=== PATIENT | female | born 1990 | race Caucasian/White ===

== ENCOUNTER 2017-10-05 17:25 | Emergency (ER) | payer SELFPAY ==
[2017-10-05 17:25] VITALS: BP 133/79; PULSE 111; RESP 18; TEMP 37; O2SAT 98; BMI 23.5
[2017-10-05 17:43] LABS: Mucous, Urine 0 SEEN /hpf (<or=2+)
[2017-10-05 18:02] LABS: Color, Urine Straw (Yellow); Glucose, Dipstick Normal (Normal); Ketone-Dipstick Negative (Negative); Leukocyte Esterase-Dipstick 25 /ul (Negative); Nitrite-Dipstick Positive (Negative); Occult Blood-Urine 10 /ul (Negative); Protein-Dipstick Negative (Negative); Urine Bilirubin Dipstick Negative (Negative); Urine Clarity Cloudy (Clear); Urine Urobilinogen Normal (Normal)
[2017-10-05 18:07] LABS: Internal QC Validated? YES +Cl - CLEAR BKGD; Pregnancy, Urine Negative Negative
[2017-10-05 18:10] LABS: White Blood Cells 0-5 SEEN /hpf (0-5)
[2017-10-05 18:11] LABS: Bacteria 4+ /hpf (None Seen); Red Blood Cells-Urine 0-5 SEEN /hpf (0-5); Squamous Epithelial Cells - UA 0-5 SEEN /hpf (5-10)
[2017-10-05] MEDS: Ibuprofen 600 MG Tablet PO (18:19)
--- NOTE | 2017-10-05 18:21 | ED.VISSUMM ---
- ER Visit Summary Date of Service: 10/05/17 Chief Complaint: Possible UTI History of Present Illness: The patient is a 27 F who reports dysuria and frequency that started yesterday. She does state her urine is cloudy and has a strong odor. She complains of some mild low back pain. She states her last menstrual cycle was in May. She has not taken a test because she has not had any other symptoms of . She has been 4 times previously. Physical Examination: Vital signs significant only for heart rate of 111. She is afebrile. Patient sitting upright in bed no acute distress. She is nontoxic appearing. Heart is regular rate and rhythm. Lung sounds are clear. Abdomen is soft with mild superpubic tenderness. No guarding or rebound. Back examination reveals no true CVA tenderness. Test Results: Urinalysis is positive for nitrites with 4+ bacteria. Urine test is negative. Emergency Department Course and Treatment: Patient is given ibuprofen and Bactrim here. Should be treated with a 3 day course of antibiotics. She is to follow-up with her [facility] in [place]. Treatment Plan: [] Disposition: Discharge Impression: 1. Cystitis 2. Amenorrhea This note was generated with [employer] dictation software. It may contain incorrect words, spelling, and punctuation that were not noted in review of the chart prior to signing ED Disposition - Plan for ED Patient: Chief Complaint: Complaint Referrals: Surya Bello DO [Primary Care Provider] -
--- NOTE | 2017-10-05 18:22 | ED.DEP ---
ED Disposition - Plan for ED Patient: Disposition: Home or Assisted Living Chief Complaint: Complaint Instructions: ED UTI Cystitis Female, ED Amenorrhea Prescriptions: Smz/Tmp Ds [Bactrim Ds] 1 tablet PO BID #6 tablet Referrals: Surya Bello DO [Primary Care Provider] - Mac Jolley DO [STAFF PHYSICIAN] -
[2017-10-05] MEDS: Smz/Tmp Ds Tablet 1 TABLET PO (18:34)
== END 2017-10-05 18:46 | disposition home or self-care (01) ==
PROVIDERS: Emergency Provider Emergency Medicine; Family Provider Student in an Organized Health Care Education/Training Program; PCP Student in an Organized Health Care Education/Training Program
DX: N30.90 Cystitis, unspecified without hematuria (principal); N91.2 Amenorrhea, unspecified; Z72.0 Tobacco use
CPT/HCPCS: 81001; 81025; 99283

== ENCOUNTER 2018-06-30 21:32 | Emergency (ER) | payer MEDICAID, SELFPAY ==
[2018-06-30 21:33] VITALS: BP 122/69; PULSE 122; RESP 17; TEMP 36.7; O2SAT 99; BMI 23.5
[2018-06-30 22:24] VITALS: BP 117/75; PULSE 113; RESP 18; O2SAT 99
--- NOTE | 2018-06-30 22:29 | US_ITS ---
STUDY: FIRST TRIMESTER OBSTETRICAL ULTRASOUND REASON FOR EXAM: Female, 27 years old. Cramping, bleeding, LMP: 04/16/2018 TECHNIQUE: Transvaginal TECHNICAL QUALITY: Adequate. PRIOR ULTRASOUND: None. FINDINGS: There is visualization of a single gestational sac in a normal intrauterine position. The mean sac diameter (MSD) measures 1.55 cm, indicating an estimated gestational age (EGA) of 6 weeks, 3 days. The gestational sac shape is within normal limits. There is a visualized yolk sac. The yolk sac measures 0.33 cm. The placenta is non-visualized. There is visualization of a live embryo. The crown-rump length (CRL) measures 0.63 cm, indicating an estimated gestational age (EGA) of 6 weeks, 4 days. There is demonstrated cardiac activity with a heart rate of 119 bpm. The estimated gestation age (EGA) by LMP is 10 weeks, 5 days. The estimated date of delivery (GRACY) by LMP is 01/21/2019. The estimated gestation age (EGA) by US is 6 weeks, 4 days. The estimated date of delivery (GRACY) by US is 02/19/2019. The uterus measures 9 x 7 x 5 cm. There is no demonstrated uterine fibroid. The cervix is closed. The right ovary measures 3 x 2.5 x 1.5 cm. There is no right ovarian cyst. There is no visualized right adnexal mass or complex lesion. The left ovary measures 3 x 3 x 2.5 cm. There is no left ovarian cyst. There is no visualized left adnexal mass or complex lesion. There is minimal fluid in the cul de sac. Prominent bilateral pelvic vessels. US/Transvaginal w/Preg US IMPRESSION: Single live intrauterine 6 weeks 4 days gestation with an GRACY of 02/19/2019 and heart rate of 119. There is no subchorionic hemorrhage. Closed internal cervical os. No adnexal masses, large pelvic fluid or ovarian torsion. Bilateral tortuous pelvic vessels possible varices. Electronically Signed: Eleni Rosa, MD at 23:31 EDT , Service support ,
[2018-06-30 22:44] LABS: Absolute Lymphocyte Count 1.88 X10^3/ul (0.83-4.51); Absolute Neutrophil Count 3.7 X10^3/uL (2.0-7.7); Basophil# 0.03 X10^3/uL; Basophil% 0.5 % (0-1); Eosinophil# 0.15 X10^3/uL; Eosinophils% 2.4 % (0-5); Lymphocyte # 1.88 X10^3/ul (4.0); Lymphocyte % 30.4 % (19-41); Mean Corp Hgb Conc 33.3 g/gl (32-36); Mean Corpuscular Volume 84.1 fL (81-99); Mean Platelet Vol. 7.9 fl (6.2-12.0); Monocyte# 0.44 X10^3/uL; Monocyte% 7.1 % (0-10); Neutrophil # 3.65 X10^3/uL (2.7-7.7); Neutrophil % 59.1 % (47-70); Platelet Count 184 K/mm3 (150-450); RBC Distribution Width CV 13.3 % (11.6-14.6); RBC Distribution Width SD 40.2 fl (35.1-43.9); Red Blood Count 4.28 M/mm3 (4.2-5.4); White Blood Count 6.2 K/mm3 (4.4-11.0)
[2018-06-30 22:45] LABS: POSITIVE COUNT NO; POSITIVE DIFFERENTIAL NO; POSITIVE MORPHOLOGY NO
[2018-06-30 23:11] LABS: hCG Titer Quant., Serum 13917 mIU/mL (1-3)
--- NOTE | 2018-06-30 23:50 | ED.DCSUM_ITS ---
- ER Visit Summary Date of Service: 06/30/18 Chief Complaint: and vaginal bleeding History of Present Illness: The patient is a 27 F whose last menstrual cycle was in April. Patient states she had lower pelvic cramping for the past couple of days. She had some vaginal bleeding earlier today that is now completely resolved. She is G5, P3 Ab1. Blood type is reviewed and is O positive. Patient plans to see Dr. Conley but has not yet been seen for this . Physical Examination: Vital signs grossly unremarkable. Patient sitting upright in bed no acute distress. She is somewhat anxious. Heart is regular rate and rhythm. Lung sounds are clear. Abdomen is soft with no tenderness on exam. Active bowel sounds are noted throughout. Test Results: CBC is unremarkable. Quant is 13,917. Transvaginal ultrasound is obtained that reveals a single live intrauterine at 6 weeks and 4 days. Heart rate is 119. No gross abnormalities noted. Emergency Department Course and Treatment: Test results discussed with the patient. I advised her that anytime she has bleeding during her it is considered a threatened miscarriage. She will follow-up with Dr. Conley. Treatment Plan: [] Disposition: Discharge Impression: Threatened AB This note was generated with [employer] dictation software. It may contain incorrect words, spelling, and punctuation that were not noted in review of the chart prior to signing ED Disposition - Plan for ED Patient: Disposition: Home or Assisted Living Instructions: ED Miscarriage Poss Referrals: Malena Conley MD [STAFF PHYSICIAN] - As soon as possible
[2018-06-30 23:54] VITALS: BP 120/78; PULSE 99; RESP 18; O2SAT 100
== END 2018-06-30 23:55 | disposition home or self-care (01) ==
PROVIDERS: Emergency Provider Emergency Medicine; Family Provider Student in an Organized Health Care Education/Training Program; PCP Student in an Organized Health Care Education/Training Program
DX: O20.0 Threatened abortion (principal); Z3A.01 Less than 8 weeks gestation of pregnancy; Z72.0 Tobacco use
CPT/HCPCS: 76817; 84702; 85025; 99283; A4216

== ENCOUNTER 2018-07-26 19:39 | Emergency (ER) | payer MEDICAID, SELFPAY ==
[2018-07-26 19:40] VITALS: BP 111/65; PULSE 113; RESP 16; TEMP 37.2; O2SAT 97; BMI 25.0
--- NOTE | 2018-07-26 20:01 | ED.DCSUM_ITS ---
- ER Visit Summary Date of Service: 07/26/18 Chief Complaint: Acute seizure History of Present Illness: The patient is a 27 F history of seizure disorder. Currently about 10 weeks. G5, P3 Ab1 with having a miscarriage. Patient's had no care. Did have a pelvic ultrasound on June 30 which showed the to be about 6 weeks and 4 days. She denies any vaginal bleeding or discharge. She had a seizure today while outside. Denies any injuries. She went to make sure that the baby was doing okay. Denies abdominal pain. Physical Examination: Well-appearing young female. Vital signs stable. Afebrile. She is not septic toxic. No acute distress. H EENT exam atraumatic nontender. Pupils round react light. Neck nontender. Lungs clear to auscultation bilaterally. Heart regular rhythm no murmur. Rate about 100. Chest nontender. Abdomen soft. Gravid uterus. Nontender. Normal bowel sounds no peritoneal signs. Patient moving all 4 extremities. Neurovascular intact. She has superficial abrasion of the right lower leg. However has normal dorsi and plantar flexion. Foot is neurovascular intact. No gross bony deformity to the foot or the ankle. Neurologically she is awake and alert with no focal motor deficits. Back exam is nontender. Test Results: heart tones equals 168 per the RN. Emergency Department Course and Treatment: Clinically patient is doing well. She is on Lamictal. She will follow-up with her neurologist. She is single care is intact none as of this time. Treatment Plan: [facility]. Follow-up with her neurologist. Disposition: Discharge Impression: Acute recurrent seizure with history of seizure disorder approximately 10 weeks. This note was generated with [employer] software. It may contain incorrect words, spelling, and punctuation that were not noted in review of the chart prior to signing ED Disposition - Plan for ED Patient: Referrals: Surya Bello DO [Primary Care Provider] -
--- NOTE | 2018-07-26 20:08 | DCINST.ED_ITS ---
ED Disposition - Plan for ED Patient: Disposition: Home or Assisted Living Instructions: ED Seizure Recurrent Referrals: Surya Bello DO [Primary Care Provider] - As Needed Malena Conley MD [STAFF PHYSICIAN] - As soon as possible Additional Instructions: Follow-up with an PAGE [facility]UP SYSTEM OPERATOR as soon as possible.
[2018-07-26 20:14] VITALS: PULSE 109; RESP 16; O2SAT 99
--- NOTE | 2018-07-26 20:15 | ED.RN ---
REVIEWED D/C INSTRUCTIONS, FOLLOW UP CARE, AND S/S THAT WOULD WARRANT A RETURN TO THE ED WITH PT. PT VERBALIZED AN UNDERSTANDING AND DENIES FURTHER QUESTIONS FOR THIS RN. PT SKIN P/W/D, RESP EVEN AND UNLABORED, PT A&O X 3, NO DISTRESS NOTED. PT AMBULATED OUT OF ED, GAIT STEADY.
== END 2018-07-26 20:15 | disposition home or self-care (01) ==
PROVIDERS: Emergency Provider Emergency Medicine; Family Provider Student in an Organized Health Care Education/Training Program; PCP Student in an Organized Health Care Education/Training Program
DX: O99.351 Diseases of the nervous system complicating pregnancy, first trimester (principal); G40.909 Epilepsy, unspecified, not intractable, without status epilepticus; Z3A.10 10 weeks gestation of pregnancy; O99.331 Smoking (tobacco) complicating pregnancy, first trimester
CPT/HCPCS: 99283

== ENCOUNTER 2019-06-10 22:24 | Emergency (ER) | payer MEDICAID, SELFPAY ==
[2019-06-10 22:24] VITALS: BP 125/84; PULSE 125; RESP 16; TEMP 36.9; O2SAT 95
[2019-06-10 22:25] VITALS: BP 125/84; PULSE 125; RESP 16; TEMP 36.9; O2SAT 95; BMI 25.5
--- NOTE | 2019-06-10 22:46 | CT_ITS ---
HISTORY: SEIZURE AND FELL AND HAS INJURY BY RT EYEHX:SEIZURES,ASTHMA,METH ABUSE ADDITIONAL HISTORY: None provided. COMPARISON: 06/22/2015 TECHNIQUE: Axial, coronal and sagittal CT images were obtained of the brain without intravenous contrast. Number of images including paperwork: 244. A radiation dose optimization technique was used for this scan. FINDINGS: BRAIN: No acute hemorrhage or mass. No definite acute infarct; MRI more sensitive. VENTRICULAR SYSTEM: No hydrocephalus. PARANASAL SINUSES AND MASTOIDS: No air-fluid level in the imaged extent. Minimal mucosal thickening. ORBITS: Unremarkable imaged extent. SKELETON AND SOFT TISSUES: Calvarium intact. Right periorbital soft tissue swelling. ASPECTS score: Not applicable. CT/Brain/Head without Contrast IMPRESSION: No acute intracranial abnormality. Individualized dose optimization techniques were used for this CT. at 2356 Reported and signed by: Josy Villalpando MD Electronically Signed: Josy Villalpando MD at 23:56 EDT Tel , Service support ,
[2019-06-10] MEDS: 0.9% Normal Saline 1,000 ML 1000 ML IV (22:58)
[2019-06-10 23:07] LABS: Absolute Lymphocyte Count 1.53 X10^3/uL (0.83-4.51); Absolute Neutrophil Count 2.7 X10^3/uL (2.0-7.7); Basophil# 0.02 X10^3/uL; Basophil% 0.4 % (0-1); Eosinophil# 0.15 X10^3/uL; Hematocrit 40.7 % (37-47); Hemoglobin 12.6 g/dL (12.0-15.0); Lymphocyte # 1.53 X10^3/ul (4.0); Lymphocyte % 30.7 % (19-41); Mean Corpuscular Hgb 25.6 pg (27.0-32.0); Mean Corpuscular Volume 82.6 fL (81-99); Mean Platelet Vol. 7.9 fl (6.2-12.0); Monocyte# 0.53 X10^3/uL; Monocyte% 10.6 % (0-10); NRBC Flagged by Analyzer 0 % (0-5); Neutrophil # 2.74 X10^3/uL (2.7-7.7); Neutrophil % 54.9 % (47-70); Platelet Count 261 K/mm3 (150-450); RBC Distribution Width CV 15.5 % (11.6-14.6); RBC Distribution Width SD 46.4 fl (35.1-43.9); Red Blood Count 4.93 M/mm3 (4.2-5.4)
--- NOTE | 2019-06-10 23:18 | ED.VISSUMM ---
- ER Visit Summary Date of Service: 06/10/19 Chief Complaint: Seizure History of Present Illness: The patient is a 28 F who presents with a seizure that occurred tonight. Patient states she was told lasted approximately 40 seconds. Patient states she was told that it was a generalized tonic-clonic seizure. Patient states she has a history of seizures. Patient states she is on Lamictal for that. Patient states she is currently at a treatment facility for methamphetamine abuse. Patient admits to nausea but denies any vomiting. Patient denies any fevers or chills. Patient states she did bite her lower lip. Patient denies any incontinence of urine or stool. Patient also complains of constipation for the past week. Physical Examination: Vital signs are stable except for tachycardia of 125. Patient is afebrile. Patient is in no acute distress. Oral mucosa is pink and moist. Neck is supple. Trachea is midline. There is no JVD noted. Heart was regular and tachycardic. Lungs are clear and equal bilaterally. Abdomen is soft. Bowel sounds are normal. There is mild suprapubic tenderness. There is no rebound or guarding noted. Skin is warm dry. Cranial nerves II through XII are intact. There are no focal motor or sensory deficits noted. Extremities are intact. There is no calf tenderness or edema. Test Results: CT scan of the brain was obtained. There is no acute intracranial abnormality. Acute abdominal x-rays were obtained. There is no evidence of obstruction. There is a large amount of stool noted throughout the colon. These were interpreted by the radiologist and reviewed by myself. CBC and comprehensive metabolic profile were obtained and were within normal limits. Lamotrigine level was ordered and is a send out. Patient will follow-up with her primary care physician for this result. Emergency Department Course and Treatment: Patient was given IV fluids here. Patient was feeling better on reevaluation. Patient will follow-up with her primary care physician for results of her lamotrigine level and reevaluation. Patient was instructed to continue her medications as previously prescribed. Patient was instructed to return if worse in any way. Patient understood and was agreeable with the plan. All questions were answered. Disposition: Discharge home Impression: 1. Seizure This note was generated with [employer] dictation software. It may contain incorrect words, spelling, and punctuation that were not noted in review of the chart prior to signing ED Disposition - Plan for ED Patient: Disposition: Home or Assisted Living Diagnosis: Seizure Instructions: ED Seizure Recurrent Adult Referrals: Surya Bello DO [Primary Care Provider] - 3-5 Days
[2019-06-10 23:20] LABS: ALB/GLOB Ratio 1.1 RATIO (0.9-2.4); AST(SGOT) 25 U/L (15-37); Alanine Aminotransfer ALT/SGPT 38 U/L (13-56); Albumin, Serum 3.9 g/dL (3.2-5.0); Alkaline Phosphatase 102 U/L (45-117); Anion Gap 5 (5-15); BUN 10 mg/dL (7-18); BUN/Creat Ratio 12.5 RATIO (10-20); Calcium,Total 9.3 mg/dL (8.5-10.1); Chloride 105 mmol/L (98-107); EST Glomerular Filtration Rate 92 mL/min (>60); Est Glom Filt Rate - Afr Amer 111 mL/min (>60); Estimated Creatinine Clearance 103.63 ml/min; Globulin 3.5 g/dL (2.2-4.2); Glucose 98 mg/dL (74-106); Potassium 3.9 mmol/L (3.5-5.1); Protein, Total 7.4 g/dL (6.4-8.2); Sodium Level 139 mmol/L (136-145)
--- NOTE | 2019-06-10 23:50 | RAD_ITS ---
HISTORY: ABDOMINAL PAIN, SEIZURE ADDITIONAL HISTORY: None provided. COMPARISON: None TECHNIQUE: Frontal chest radiograph. Supine and left lateral decubitus abdominal radiographs. Number of images including paperwork: 4 FINDINGS: Chest: LUNGS AND PLEURA: No consolidation or pleural effusion. CARDIOMEDIASTINAL CONTOUR: Unremarkable. Abdomen: FREE AIR: None detected. BOWEL GAS PATTERN: Nonobstructive. Large amount of colonic stool. CALCIFICATIONS: No definite urinary tract calculi. ORGANS: No evidence of organomegaly. SOFT TISSUES: Unremarkable. BONES: No acute skeletal abnormality. DEVICES: None RAD/Acute [employer] Chest (Portable) IMPRESSION: 1. No acute cardiopulmonary abnormality is radiographically apparent. 2. No acute abdominal abnormality is radiographically apparent. Large amount of colonic stool. at 0013 Reported and signed by: Josy Villalpando MD Electronically Signed: Josy Villalpando MD at 0:13 EDT Tel , Service support ,
[2019-06-11 00:41] VITALS: BP 110/73; PULSE 108; RESP 18; O2SAT 99
[2019-06-14 14:28] LABS: Lamotrigine (Lamictal) Level 12.9 ug/mL (2.0-20.0)
== END 2019-06-11 00:42 | disposition home or self-care (01) ==
PROVIDERS: Emergency Provider Emergency Medicine; PCP Student in an Organized Health Care Education/Training Program
DX: G40.909 Epilepsy, unspecified, not intractable, without status epilepticus (principal); F15.10 Other stimulant abuse, uncomplicated; K59.00 Constipation, unspecified; F17.210 Nicotine dependence, cigarettes, uncomplicated; Z86.19 Personal history of other infectious and parasitic diseases
CPT/HCPCS: 70450; 74022; 80053; 82542; 85025; 96360; 99285; J7030; A4216

== ENCOUNTER → 2019-07-13 14:38 | Outpatient (CLI) | payer MEDICAID, SELFPAY ==
[2019-07-13 15:23] LABS: Color, Urine Straw (Yellow); Glucose, Dipstick Normal (Normal); Ketone-Dipstick Negative (Negative); Leukocyte Esterase-Dipstick Negative /ul (Negative); Nitrite-Dipstick Negative (Negative); Occult Blood-Urine Negative /ul (Negative); Protein-Dipstick Negative (Negative); Urine Bilirubin Dipstick Negative (Negative); Urine Clarity Clear (Clear); Urine Urobilinogen Normal (Normal)
[2019-07-14 09:50] LABS: Hepatitis C Antibody REACTIVE (Nonreactive)
[2019-07-15 18:10] LABS: HPV Reflexed? NOT INDICATED
[2019-07-25 14:12] LABS: Comment 3 (.); HCV Quant. RNA PCR 110000 IU/mL (.)
[2019-07-25 23:59] LABS: HCV log 10 5.041 (.)
== END ==
PROVIDERS: PCP Student in an Organized Health Care Education/Training Program; Referring Provider Obstetrics & Gynecology; Visit Provider Obstetrics & Gynecology
DX: B18.2 Chronic viral hepatitis C (principal); N39.0 Urinary tract infection, site not specified
CPT/HCPCS: 81002; 86803; 87086; 87088; 87186; 87491; 87522; 87591; 87902; 88175; G0145

== ENCOUNTER 2019-07-19 21:28 | Emergency (ER) | payer MEDICAID, SELFPAY ==
[2019-07-19 21:31] VITALS: BP 115/81; PULSE 90; RESP 16; TEMP 36.1; O2SAT 100; BMI 28.4
--- NOTE | 2019-07-19 22:03 | EKG12_ITS ---
Test Reason : SOB Blood Pressure : / mmHG Vent. Rate : 076 BPM Atrial Rate : 076 BPM P-R Int : 130 ms QRS Dur : 090 ms QT Int : 388 ms P-R-T Axes : -06 063 027 degrees QTc Int : 436 ms Normal sinus rhythm Normal ECG Confirmed by HAI LANDRY, BORIS ([id number]), editorial writer URIAH CALLAHAN ([id number]) on 07/26/2019 3:30:58 PM Referred By: RAFY Confirmed By:BORIS VALLES MD
[2019-07-19 22:34] VITALS: BP 114/80; PULSE 75; RESP 18; TEMP 36.7; O2SAT 100
[2019-07-19] MEDS: 0.9% Normal Saline 1,000 ML 1000 ML IV (22:36)
--- NOTE | 2019-07-19 22:37 | ED.VISSUMM ---
- ER Visit Summary Date of Service: 07/19/19 Chief Complaint: MRSA in my blood History of Present Illness: The patient is a 28 F who presents because she was contacted that she has MRSA in her blood test. She is reporting shortness of breath, chest pain, rash. She tells me she was recently prescribed Macrobid for a UTI. She also has an IUD in place and is having vaginal bleeding. She was seen at her INTERIOR DESIGN COORDINATOR's office for the UTI and the bleeding. She is now having the chest pain and other symptoms, so this prompted her to come to the ED. Physical Examination: Afebrile and vital signs are unremarkable. Patient is alert and oriented. No acute distress. Heart regular and no respiratory distress. Breathing comfortably. No wheezing. Skin appears unremarkable. Test Results: EKG shows sinus rhythm at a rate of 76. CBC, BMP, troponin pending. Chest x-ray pending. Emergency Department Course and Treatment: I reviewed the patient's records. She had a urine culture that showed MRSA but no positive blood cultures. I contacted her INTERIOR DESIGN COORDINATOR office, Dr. Sheehan said that she had positive MRSA in her urine which was sensitive to many antibiotics. She was treated with Macrobid. There is no positive blood culture. Macrobid is appropriate based on her culture. I did check an EKG, chest x-ray, and labs based on her other symptoms. I have low suspicion for anything abnormal. Pending normal results, she will follow-up with her INTERIOR DESIGN COORDINATOR office. Continue taking her antibiotic as prescribed. Treatment Plan: As above Disposition: Discharge pending normal testing Impression: UTI Atypical chest pain This note was generated with [employer] dictation software. It may contain incorrect words, spelling, and punctuation that were not noted in review of the chart prior to signing ED Disposition - Plan for ED Patient: Referrals: Surya Bello DO [Primary Care Provider] -
--- NOTE | 2019-07-19 22:40 | RAD_ITS ---
STUDY: X-RAY CHEST REASON FOR EXAM: Female, 28 years old. Chest pain with sob TECHNIQUE: Single AP portable view of the chest. COMPARISON: 06/10/2019 FINDINGS: The lungs are clear and expanded. There is no demonstrated pleural abnormality. Normal size heart. Normal mediastinum and buddy. Normal visualized pulmonary arteries. Normal visualized aortic arch and descending thoracic aorta. Normal visualized thoracic spine. Normal visualized ribs, clavicles, and shoulders. There is no demonstrated abnormality of the visualized soft tissue structures of the upper abdomen. RAD/Chest 1 View (Portable) IMPRESSION: Normal x-ray examination of the chest. Electronically Signed: Dwight Sutherland MD at 23:00 EDT , Service support ,
--- NOTE | 2019-07-19 22:40 | ED.DEP ---
ED Disposition - Plan for ED Patient: Instructions: Understanding Urinary Tract Infections (UTIs) Prescriptions: Ondansetron [Zofran Odt] 4 mg PO Q8H PRN PRN #10 tab PRN Reason: Nausea Prescription Printed Referrals: Gavino Sheehan MD [STAFF PHYSICIAN] -
[2019-07-19 22:45] LABS: Absolute Lymphocyte Count 1.92 X10^3/uL (0.83-4.51); Absolute Neutrophil Count 3.5 X10^3/uL (2.0-7.7); Basophil# 0.02 X10^3/uL; Basophil% 0.3 % (0-1); Eosinophil# 0.15 X10^3/uL; Eosinophils% 2.4 % (0-5); Hemoglobin 12.2 g/dL (12.0-15.0); Lymphocyte # 1.92 X10^3/ul (4.0); Lymphocyte % 31.1 % (19-41); Mean Corp Hgb Conc 32.1 g/dL (32-36); Mean Corpuscular Hgb 26.7 pg (27.0-32.0); Mean Corpuscular Volume 83.2 fL (81-99); Mean Platelet Vol. 8.5 fl (6.2-12.0); Monocyte# 0.53 X10^3/uL; Monocyte% 8.6 % (0-10); NRBC Flagged by Analyzer 0 % (0-5); Neutrophil # 3.53 X10^3/uL (2.7-7.7); Neutrophil % 57.3 % (47-70); Platelet Count 268 K/mm3 (150-450); RBC Distribution Width CV 14.2 % (11.6-14.6); RBC Distribution Width SD 42.6 fl (35.1-43.9); Red Blood Count 4.57 M/mm3 (4.2-5.4); White Blood Count 6.2 K/mm3 (4.4-11.0)
[2019-07-19 23:08] LABS: Anion Gap 7 (5-15); BUN 17 mg/dL (7-18); BUN/Creat Ratio 20.4 RATIO (10-20); Calcium,Total 8.8 mg/dL (8.5-10.1); Chloride 105 mmol/L (98-107); Creatinine, Serum 0.83 mg/dL (0.55-1.02); EST Glomerular Filtration Rate 88 mL/min (>60); Est Glom Filt Rate - Afr Amer 106 mL/min (>60); Estimated Creatinine Clearance 92.42 ml/min; Glucose 84 mg/dL (74-106); Potassium 3.5 mmol/L (3.5-5.1); Sodium Level 139 mmol/L (136-145)
[2019-07-19 23:27] VITALS: BP 119/83; PULSE 75; RESP 19; O2SAT 100
== END 2019-07-19 23:28 | disposition home or self-care (01) ==
LOC: ED 22:54
PROVIDERS: Emergency Provider Emergency Medicine; PCP Student in an Organized Health Care Education/Training Program
DX: N39.0 Urinary tract infection, site not specified (principal); R07.89 Other chest pain; A49.02 Methicillin resistant Staphylococcus aureus infection, unspecified site; Z97.5 Presence of (intrauterine) contraceptive device; N93.9 Abnormal uterine and vaginal bleeding, unspecified
CPT/HCPCS: 71045; 80048; 84484; 85025; 93005; 99284; J7030

== ENCOUNTER 2019-09-19 21:26 | Emergency (ER) | payer MEDICAID, SELFPAY ==
[2019-09-19 21:28] VITALS: BP 123/78; PULSE 67; RESP 20; TEMP 36.8; O2SAT 97; BMI 26.4
[2019-09-19] MEDS: Acetaminophen 325 MG Tablet 650 MG PO (22:30)
[2019-09-19] MEDS: Ibuprofen 600 MG Tablet PO (22:30)
--- NOTE | 2019-09-19 22:54 | ED.DCSUM_ITS ---
History of Present Illness Chief Complaint: Seizure Informant: Patient, Significant Other Onset: Today Narrative: Patient is a 29-year-old female with history of epilepsy presenting with a breakthrough seizure. Patient is on Lamictal but missed 2 doses earlier this week. She has been on it since. She was left alone by her significant other for about an hour when he came back she was on the ground and items restrained about the kitchen. Patient was minimally responsive and was not making sense when she did speak. Her significant other thought it was taking longer than it should have for her to come back to normal so he called 911. Patient is now back to her baseline. She is complained of a mild headache which is typical after her seizures. She does states she hit her head on the right side but she does not have any wounds to this visualized. Patient states normally she will hit her face and be look like she was punched in the face after seizure. Patient denies any other complaints at this time. Her last menstrual period was 3 weeks ago and she is not concerned for . Past Medical History - Allergies and Home Meds Allergies/Adverse Reactions: Allergies No Known Allergies Allergy (Verified 09/19/19 21:28) Primary Care Physician: Surya Bello DO [Primary Care Provider] - Past Medical History: - - Generalized tonic-clonic seizures, resting tremor Lives: Spouse/ Significant Other Smoking Status: Current every day smoker Review of Systems General: Denies: Chills, Fever, Sweats Eyes: Denies: Visual changes - bilaterally, Diplopia ENT: Denies: Rhinorrhea, Sore throat Cardiovascular: Denies: Chest pain, Palpitations Respiratory: Denies: Dyspnea, Cough, Dyspnea on exertion Gastrointestinal: Denies: Abdominal pain, Nausea, Vomiting, Diarrhea, Melena, Hematochezia Genitourinary: Denies: Dysuria, Hematuria, Frequency Musculoskeletal: Denies: Back pain, Extremity Pain Skin: Denies: Rash, Wounds Neurological: Reports: Headache, - - Seizure-like activity. Denies: Weakness, N umbness Physical Exam Vital Signs/Narrative: Vital Signs Temp Pulse Resp BP Pulse Ox 09/19/19 21:28 98.3 F 67 20 H 123/78 H 97 Inital Vital Signs reviewed: Yes General: Well nourished, Well developed, No Acute Distress Head: Normocephalic, Atraumatic, Tenderness - Right parietal area, no associated hematoma, abrasion or laceration Eyes: Perrl, EOMI, - - No nystagmus ENT: Moist mucous membranes, No rhinorrhea Neck: Supple, Nontender, - - Normal range of motion Cardiovascular: Regular rate, Regular rhythm, No murmurs Respiratory: No distress, CTA bilaterally, Chest nontender Abdomen: Soft, Nontender, Nondistended, Normal bowel sounds Back: Nontender, Normal Inspection Extremities: Nontender, No edema. Negative for: Tenderness, Edema Skin: Normal color, No rash Neurological: Alert, Oriented x3, Cranial nerves II-XII grossly intact, Normal Strength, Normal Sensation, Normal Gait. Negative for: Weakness Psychological: Normal affect, Normal Mood Diagnostic/Tx/Re-eval - Medical Decision Making Patient evaluated for seizure-like activity. It was unwitnessed but significant other found her postictal and house had items strewn about as if she had a seizure while staying at the dining room table. Patient is now back to her neurologic baseline. She is on any obvious signs of head trauma. Patient does have some mild tenderness of her right parietal area with no associated hematoma. Patient states she thinks she might of hit her head during the seizure. She is offered a head CT but declines. Patient not have any neck t enderness. She recently missed a couple doses of her Lamictal which is likely why she had a breakthrough seizure. She states is typical if she does miss doses. Patient and significant other are counseled on return precautions including multiple episodes of vomiting, altered mental status or new neurologic symptoms. They verbalized agreement understand this plan. Patient discharged home in stable condition. ED Disposition - Plan for ED Patient: Disposition: Home or Assisted Living Diagnosis: Breakthrough seizure, Closed head injury Instructions: ED Head Injury Adult, ED Seizure Recurrent Adult Referrals: Surya Bello DO [Primary Care Provider] - Additional Instructions: Take Tylenol and/or ibuprofen as needed for pain. Please follow-up with your neurologist. Please do not drive, take baths or swim until cleared by your neurologist. Continue to take your seizure medication as prescribed.
[2019-09-19 23:02] VITALS: BP 113/73; PULSE 73; RESP 16; O2SAT 98
== END 2019-09-19 23:05 | disposition home or self-care (01) ==
PROVIDERS: Emergency Provider Emergency Medicine; PCP Student in an Organized Health Care Education/Training Program
DX: G40.409 Other generalized epilepsy and epileptic syndromes, not intractable, without status epilepticus (principal); S09.90XA Unspecified injury of head, initial encounter; F17.200 Nicotine dependence, unspecified, uncomplicated; W22.8XXA Striking against or struck by other objects, initial encounter
CPT/HCPCS: 99285

== ENCOUNTER 2019-09-22 22:01 | Emergency (ER) | payer MEDICAID, SELFPAY ==
[2019-09-22 22:02] VITALS: BP 118/71; PULSE 80; RESP 16; TEMP 36.9; O2SAT 98; BMI 27.3
--- NOTE | 2019-09-22 22:36 | ED.VIS.GEN ---
History of Present Illness Chief Complaint: Headache Informant: Patient Narrative: 29-year-old female presents with headache which is been continuous since she had been seen for seizure last week. She states she had a 3-minute seizure witnessed by her boyfriend. She was postictal for a while. They did not do any blood work or imaging when she was in the ER. She states that she has not been able to get rid of her headache. Today she felt a little lightheaded and nauseous. Not fall down. Denies fever or chills. Past Medical History - Allergies and Home Meds Allergies/Adverse Reactions: Allergies No Known Allergies Allergy (Verified 09/22/19 22:04) Primary Care Physician: Surya Bello DO [Primary Care Provider] - Prior records reviewed: Yes Lives: Spouse/ Significant Other Smoking Status: Current every day smoker Alcohol: None Drugs: None Review of Systems General: Denies: Chills, Fever Respiratory: Denies: Dyspnea, Cough, Dyspnea on exertion Gastrointestinal: Denies: Abdominal pain, Nausea, Vomiting, Diarrhea, Melena, Hematochezia Genitourinary: Reports: Frequency. Denies: Dysuria Musculoskeletal: Denies: Myalgias Skin: Denies: Rash Neurological: Reports: Headache. Denies: Weakness, Parasthesia, Numbness Psych: Denies: Depression, Anxiety Allergy: Denies: Uticaria, Swelling of the mouth Physical Exam Vital Signs/Narrative: Vital Signs Temp Pulse Resp BP Pulse Ox 09/22/19 22:02 98.4 F 80 16 118/71 98 Inital Vital Signs reviewed: Yes General: Well nourished, Well developed, No Acute Distress Head: Normocephalic, Atraumatic Eyes: Perrl ENT: Moist mucous membranes Cardiovascular: Regular rate Respiratory: No distress Abdomen: Soft Skin: Normal color Neurological: Alert, Oriented x3, Cranial nerves II-XII grossly intact, Normal Strength, Normal Sensation Psychological: Normal affect Diagnostic/Tx/Re-eval - Medical Decision Making Presents with headache since having seizure on her last visit. Check some basic lab work and this is normal. She does have a UTI it appears. We did discuss whether we should do a CT of the brain but given there is another source for headache she opted to wait. I think this is reasonable. Patient will return if she has any new or worsening symptoms. Impression: 1. Headache 2. UTI ED Disposition - Plan for ED Patient: Disposition: Home or Assisted Living Diagnosis: UTI (urinary tract infection) Instructions: ED Headache Unspecified, ED CYSTITIS Female Adult Referrals: Surya Bello DO [Primary Care Provider] -
[2019-09-22 22:44] LABS: Mucous, Urine 0 SEEN /hpf (<or=2+)
[2019-09-22] MEDS: Metoclopramide 10 MG/2 ML Vial IV (22:46)
[2019-09-22 22:47] LABS: Color, Urine Yellow (Yellow); Glucose, Dipstick Normal (Normal); Ketone-Dipstick Negative (Negative); Leukocyte Esterase-Dipstick 100 /ul (Negative); Nitrite-Dipstick Negative (Negative); Occult Blood-Urine 10 /ul (Negative); Protein-Dipstick Negative (Negative); Urine Bilirubin Dipstick Negative (Negative); Urine Clarity Cloudy (Clear); Urine Urobilinogen 1 mg/dl (Normal)
[2019-09-22 22:47] LABS: Absolute Lymphocyte Count 1.69 X10^3/uL (0.83-4.51); Absolute Neutrophil Count 2.1 X10^3/uL (2.0-7.7); Basophil# 0.01 X10^3/uL; Basophil% 0.2 % (0-1); Eosinophil# 0.19 X10^3/uL; Eosinophils% 4.3 % (0-5); Hematocrit 38.5 % (37-47); Lymphocyte # 1.69 X10^3/ul (4.0); Lymphocyte % 38.4 % (19-41); Mean Corp Hgb Conc 31.2 g/dL (32-36); Mean Corpuscular Hgb 25.5 pg (27.0-32.0); Mean Corpuscular Volume 81.7 fL (81-99); Monocyte# 0.42 X10^3/uL; Monocyte% 9.5 % (0-10); NRBC Flagged by Analyzer 0 % (0-5); Neutrophil # 2.08 X10^3/uL (2.7-7.7); Neutrophil % 47.4 % (47-70); Platelet Count 223 K/mm3 (150-450); RBC Distribution Width CV 13.9 % (11.6-14.6); RBC Distribution Width SD 41.1 fl (35.1-43.9); Red Blood Count 4.71 M/mm3 (4.2-5.4); White Blood Count 4.4 K/mm3 (4.4-11.0)
[2019-09-22] MEDS: DiphenhydrAMINE 50 MG/ML Syringe 25 MG IV (22:49)
[2019-09-22 22:51] LABS: Internal QC Validated? YES +Cl - CLEAR BKGD; Pregnancy, Urine Negative Negative
[2019-09-22 22:54] LABS: Bacteria 3+ /hpf (None Seen); Red Blood Cells-Urine 0-5 SEEN /hpf (0-5); Squamous Epithelial Cells - UA 0-5 SEEN /hpf (5-10); White Blood Cells 5-10 SEEN /hpf (0-5)
[2019-09-22 22:57] LABS: Anion Gap 3 (5-15); BUN 6 mg/dL (7-18); BUN/Creat Ratio 7.2 RATIO (10-20); Calcium,Total 8.9 mg/dL (8.5-10.1); Chloride 111 mmol/L (98-107); Creatinine, Serum 0.83 mg/dL (0.55-1.02); EST Glomerular Filtration Rate 88 mL/min (>60); Est Glom Filt Rate - Afr Amer 106 mL/min (>60); Estimated Creatinine Clearance 99.01 ml/min; Glucose 131 mg/dL (74-106); Potassium 3.6 mmol/L (3.5-5.1); Sodium Level 141 mmol/L (136-145)
[2019-09-22] MEDS: Cephalexin 250 MG Capsule 500 MG PO (23:51)
[2019-09-23 00:03] VITALS: BP 116/70; PULSE 68; RESP 16; O2SAT 99
== END 2019-09-23 00:43 | disposition home or self-care (01) ==
PROVIDERS: Emergency Provider Student in an Organized Health Care Education/Training Program; PCP Student in an Organized Health Care Education/Training Program
DX: N39.0 Urinary tract infection, site not specified (principal); R51 Headache; F17.200 Nicotine dependence, unspecified, uncomplicated; G40.909 Epilepsy, unspecified, not intractable, without status epilepticus
CPT/HCPCS: 80048; 81001; 81025; 85025; 96374; 96375; 99282; A4216

== ENCOUNTER 2019-11-25 16:14 | Emergency (ER) | payer MEDICAID, SELFPAY ==
[2019-11-25 16:16] VITALS: BP 141/75; PULSE 103; RESP 17; TEMP 36.3; O2SAT 99; BMI 23.8
--- NOTE | 2019-11-25 16:22 | ED.RN ---
pt informed that there is a wait in ed today. pt reports that she cannot wait, and needs to be seen right away. pt educated on triage process. reports she will go to be seen somewhere else. lwbs at 1622.
== END 2019-11-25 17:16 ==
LOC: ED 16:54
PROVIDERS: Emergency Provider Emergency Medicine; PCP Student in an Organized Health Care Education/Training Program
DX: N93.9 Abnormal uterine and vaginal bleeding, unspecified (principal)
CPT/HCPCS: 99281

== ENCOUNTER 2019-12-08 09:07 | Emergency (ER) | payer MEDICAID, SELFPAY ==
[2019-12-08 09:09] VITALS: BP 125/67; PULSE 89; RESP 16; TEMP 36.3; O2SAT 100; BMI 24.3
--- NOTE | 2019-12-08 09:31 | ED.VIS.GEN ---
History of Present Illness Chief Complaint: Vag Bld, Preg Informant: Patient Narrative: 29-year-old female G6, currently estimated at 10 weeks . She states that she is trying to establish with an LOSS PREVENTION AND SAFETY MANAGER currently and has an appointment for next week. She presents with vaginal spotting started last evening/this morning. She denies any injury. She has not been having sexual intercourse. She states she has some associated cramping. She is concerned that she has miscarrying because her last ended in miscarriage. She knows that she is O+ blood type. She does not require RhoGam. She has not had any fever, chills. She has no nausea or vomiting. She has not had confirmed intrauterine . Past Medical History - Allergies and Home Meds Allergies/Adverse Reactions: Allergies paroxetine [From Paxil] Adverse Reaction (Verified 12/08/19 09:09) Vomiting Primary Care Physician: Surya Bello DO [Primary Care Provider] - Past Medical History: - - Denies significant medical history Lives: Spouse/ Significant Other Smoking Status: Current every day smoker Alcohol: None Drugs: None Review of Systems General: Denies: Chills, Fever, Sweats Eyes: Denies: Visual changes - bilaterally, Diplopia ENT: Denies: Rhinorrhea, Sore throat Cardiovascular: Denies: Chest pain, Palpitations Respiratory: Denies: Dyspnea, Cough, Dyspnea on exertion Gastrointestinal: Reports: - Genitourinary: Reports: - - Pelvic pain and cramping with vaginal spotting Musculoskeletal: Denies: Back pain, Extremity Pain Skin: Denies: Rash, Wounds Neurological: Denies: Headache, Weakness, Numbness Physical Exam Vital Signs/Narrative: Vital Signs Temp Pulse Resp BP Pulse Ox 12/08/19 09:09 97.3 F L 89 16 125/67 H 100 Inital Vital Signs reviewed: Yes General: Well nourished, No Acute Distress Head: Normocephalic, Atraumatic Eyes: Perrl, EOMI. Negative for: Pale conjunctiva ENT: Moist mucous membranes, No rhinorrhea Cardiovascular: Regular rate, Regular rhythm Respiratory: No distress, CTA bilaterally Abdomen: Soft, Nondistended : - - Mild tenderness to palpation in the suprapubic region. Abdomen is nonperitoneal. Rectal osseous closed. No blood in the posterior fornix. No abnormal lesions notified. No adnexal tenderness. Extremities: Nontender, No edema Skin: Normal color, No rash Neurological: Alert, Oriented x3 Psychological: Normal affect, Normal Mood Diagnostic/Tx/Re-eval Clinical Impression(s) from Imaging Studies Obstetrics Ultrasound 12/08/19 09:35 IMPRESSION: There is visualization of a live embryo. The crown-rump length (CRL) measures 6.8 mm, indicating an estimated gestational age (EGA) of 6 weeks, 4 days. There is demonstrated cardiac activity with a heart rate of 125 bpm. Electronically Signed: Zoila Montemayor, at 12:04 EDT Tel , Service support , Laboratory Data 12/08/19 12/08/19 12/08/19 09:47 09:47 09:47 WBC 4.7 RBC 4.48 Hgb 12.1 Hct 37.2 MCV 83.0 MCH 27.0 MCHC 32.5 RDW Std Deviation 43.0 RDW Coeff of Sylvia 14.2 Plt Count 234 MPV 8.3 Immature Gran % (Auto) 0.400 Neut % (Auto) 54.1 Lymph % (Auto) 31.6 [place] % (Auto) 9.1 Eos % (Auto) 4.4 Baso % (Auto) 0.4 Absolute Neuts (auto) 2.6 Absolute Lymphs (auto) 1.50 Nucleated RBC % 0 HCG, Quant 22444 H Urine Color Straw Urine Clarity Clear Urine pH 7.0 Ur Specific [place] 1.010 Urine Protein Negative Urine Glucose (UA) Normal Urine Ketones Negative Urine Occult Blood Negative Urine Nitrite Negative Urine Bilirubin Negative Urine Urobilinogen Normal Ur Leukocyte Esterase 25 H - Medical Decision Making 29-year-old female presenting for concern of vaginal bleeding and . She estimates she is about 10 weeks. She has not had follow-up with OB but she is trying to get established. She is having some pelvic cramping as well. She is only had a small amount of spotting but she is concerned because she miscarried her last . h[place] quant [id number]. Transvaginal ultrasound shows live intrauterine about 6 weeks, 4 days. Needle heart rate heart rate of 125 bpm. On pelvic exam there is no blood in the posterior fornix. The cervical office is closed. There is no discharge. No adnexal tenderness. Given her hCG I feel we can effectively rule out ectopic . Patient is known to be Rh+ and does not require RhoGam. She is going to follow-up with her LOSS PREVENTION AND SAFETY MANAGER for her initial appointment. She is given return precautions. Impression: 1. First trimester 2. Threatened miscarriage ED Disposition - Plan for ED Patient: Disposition: Home or Assisted Living Instructions: ED Possible Miscarriage Threatened Referrals: Surya Bello DO [Primary Care Provider] -
--- NOTE | 2019-12-08 09:35 | US_ITS ---
STUDY: FIRST TRIMESTER OBSTETRICAL ULTRASOUND REASON FOR EXAM: Female, 29 years old BLEEDING CRAMPING W/PREG -- QUANT [id number] -- PT UNSURE OF LMP LMP: TECHNIQUE: Transabdominal and Transvaginal TECHNICAL QUALITY: Adequate. PRIOR ULTRASOUND: None. FINDINGS: There is visualization of a single gestational sac in a normal intrauterine position. The mean sac diameter (MSD) measures 1.78 cm, indicating an estimated gestational age (EGA) of 6 weeks, 5 days. The gestational sac shape is within normal limits. There is a visualized yolk sac. The yolk sac measures 4.7 mm. The placenta is non-visualized. There is visualization of a live embryo. The crown-rump length (CRL) measures 6.8 mm, indicating an estimated gestational age (EGA) of 6 weeks, 4 days. There is demonstrated cardiac activity with a heart rate of 125 bpm. The estimated gestation age (EGA) by LMP is 9 weeks, 5 days. The estimated date of delivery (GRACY) by LMP is 07/07/2020. The estimated gestation age (EGA) by US is 6 weeks, 5 days. The estimated date of delivery (GRACY) by US is 07/28/2020. The uterus measures 11.3 x 6.5 x 6. Centimeter 8. There is no demonstrated uterine fibroid. The cervix is closed. The right ovary measures 3.7 x 2.3 x 2.4 cm. There is no right ovarian cyst. There is no visualized right adnexal mass or complex lesion. The left ovary measures 3.2 x 2.7 x 2.3 cm. There is no left ovarian cyst. There is no visualized left adnexal mass or complex lesion. There is no fluid in the cul de sac. US/Init OB < 14Wks US IMPRESSION: There is visualization of a live embryo. The crown-rump length (CRL) measures 6.8 mm, indicating an estimated gestational age (EGA) of 6 weeks, 4 days. There is demonstrated cardiac activity with a heart rate of 125 bpm. Electronically Signed: Zoila Montemayor, at 12:04 EDT Tel , Service support ,
[2019-12-08 09:56] LABS: Absolute Neutrophil Count 2.6 X10^3/uL (2.0-7.7); Basophil# 0.02 X10^3/uL; Basophil% 0.4 % (0-1); Color, Urine Straw (Yellow); Eosinophil# 0.21 X10^3/uL; Eosinophils% 4.4 % (0-5); Glucose, Dipstick Normal (Normal); Hematocrit 37.2 % (37-47); Hemoglobin 12.1 g/dL (12.0-15.0); Ketone-Dipstick Negative (Negative); Leukocyte Esterase-Dipstick 25 /ul (Negative); Lymphocyte % 31.6 % (19-41); Mean Corp Hgb Conc 32.5 g/dL (32-36); Mean Platelet Vol. 8.3 fl (6.2-12.0); Monocyte# 0.43 X10^3/uL; Monocyte% 9.1 % (0-10); NRBC Flagged by Analyzer 0 % (0-5); Neutrophil # 2.56 X10^3/uL (2.7-7.7); Neutrophil % 54.1 % (47-70); Nitrite-Dipstick Negative (Negative); Occult Blood-Urine Negative /ul (Negative); Platelet Count 234 K/mm3 (150-450); Protein-Dipstick Negative (Negative); RBC Distribution Width CV 14.2 % (11.6-14.6); Red Blood Count 4.48 M/mm3 (4.2-5.4); Urine Bilirubin Dipstick Negative (Negative); Urine Clarity Clear (Clear); Urine Urobilinogen Normal (Normal); White Blood Count 4.7 K/mm3 (4.4-11.0)
[2019-12-08 10:39] LABS: hCG Titer Quant., Serum 23944 mIU/mL (1-3)
== END 2019-12-08 11:38 | disposition home or self-care (01) ==
PROVIDERS: Emergency Provider Student in an Organized Health Care Education/Training Program; PCP Student in an Organized Health Care Education/Training Program
DX: O20.0 Threatened abortion (principal); Z3A.10 10 weeks gestation of pregnancy; O99.331 Smoking (tobacco) complicating pregnancy, first trimester; F17.200 Nicotine dependence, unspecified, uncomplicated
CPT/HCPCS: 76801; 81002; 84702; 85025; 99283; A4216

== ENCOUNTER 2020-05-11 10:30 | Outpatient (CLI) | payer MEDICAID, SELFPAY ==
[2020-05-11 10:50] VITALS: BP 119/70; PULSE 107; TEMP 37.2; O2SAT 98
[2020-05-11 10:51] VITALS: TEMP 37.2
[2020-05-11 10:52] VITALS: PULSE 106; O2SAT 98
[2020-05-11 10:57] VITALS: BMI 27.2
--- NOTE | 2020-05-11 11:58 | US_ITS ---
STUDY: SECOND AND THIRD TRIMESTER OBSTETRICAL ULTRASOUND - LIMITED REASON FOR EXAM: Female, 29 years old right lower quadrant pain, spotting in -- 29 weeks 2 days LMP: 10/19/2019 PRIOR ULTRASOUND: None. TECHNIQUE: Transabdominal TECHNICAL QUALITY: Adequate. FINDINGS: There is a single intrauterine fetus. The fetus is in a cephalic presentation. There is demonstrated cardiac activity with a heart rate of 157 bpm. There is a normal amniotic fluid volume. The largest amniotic fluid pocket measures 6.7 cm. The amniotic fluid index (YVETTE) is 16.9 cm. The placenta is anterior in location and is not low lying. There are Grade 1 placental changes. The cervix measures 4.3 cm in length. Age by LMP: 29 weeks, 2 days. GRACY by LMP: 07/25/2020. age by prior US: 29 weeks, 5 days. GRACY by prior US: 07/28/2020. age by current US: 29 weeks, 2 days. GRACY by current US: 07/25/2020. US/OB Limited (No Biometrics) IMPRESSION: There is a normal amniotic fluid volume. The largest amniotic fluid pocket measures 6.7 cm. The amniotic fluid index (YVETTE) is 16.9 cm. The placenta is anterior in location and is not low lying. There are Grade 1 placental changes. The cervix measures 4.3 cm in length. Electronically Signed: Zoila Montemayor MD at 15:31 EST Tel , Service support ,
[2020-05-11 13:10] LABS: Bacteria 0 SEEN /hpf (None Seen); Mucous, Urine 0 SEEN /hpf (<or=2+); Red Blood Cells-Urine 0 SEEN /hpf (0-5); White Blood Cells 0 SEEN /hpf (0-5)
[2020-05-11 13:11] LABS: Color, Urine Yellow (Yellow); Glucose, Dipstick 1000 mg/dl (Normal); Ketone-Dipstick Negative (Negative); Leukocyte Esterase-Dipstick Negative /ul (Negative); Nitrite-Dipstick Negative (Negative); Occult Blood-Urine Negative /ul (Negative); Protein-Dipstick Negative (Negative); Urine Bilirubin Dipstick Negative (Negative); Urine Clarity Clear (Clear); Urine Urobilinogen Normal (Normal)
[2020-05-11 13:12] LABS: Absolute Lymphocyte Count 1.96 X10^3/uL (0.83-4.51); Absolute Neutrophil Count 11.5 X10^3/uL (2.0-7.7); Basophil# 0.06 X10^3/uL; Basophil% 0.4 % (0-1); Eosinophil# 0.26 X10^3/uL; Eosinophils% 1.7 % (0-5); Hematocrit 34.9 % (37-47); Hemoglobin 11.3 g/dL (12.0-15.0); Lymphocyte # 1.96 X10^3/ul (4.0); Lymphocyte % 13.2 % (19-41); Mean Corp Hgb Conc 32.4 g/dL (32-36); Mean Corpuscular Hgb 26.8 pg (27.0-32.0); Mean Corpuscular Volume 82.7 fL (81-99); Mean Platelet Vol. 8.7 fl (6.2-12.0); Monocyte# 0.86 X10^3/uL; Monocyte% 5.8 % (0-10); NRBC Flagged by Analyzer 0 % (0-5); Neutrophil % 77.2 % (47-70); Platelet Count 268 K/mm3 (150-450); RBC Distribution Width CV 14.6 % (11.6-14.6); RBC Distribution Width SD 43.5 fl (35.1-43.9); Red Blood Count 4.22 M/mm3 (4.2-5.4); White Blood Count 14.9 K/mm3 (4.4-11.0)
[2020-05-11 13:16] LABS: Squamous Epithelial Cells - UA 0-5 SEEN /hpf (5-10)
--- NOTE | 2020-05-11 13:18 | PCM.PN.BLA ---
Progress Note HPI: 29-year-old G6, P4 at 29 weeks and 2 days presenting status post seizure. Patient had seizure this morning witnessed by her partner. States that she had postictal period. Seizure lasted about 5 minutes. Reports pink spotting with wiping that has since resolved. Baby is moving well at this time. Denies contractions, cramping, abdominal pain. Denies headache, vision changes, chest pain, shortness of breath. She sees a neurologist routinely, is trying to schedule her next appointment because she needs refill of her medication. States that seizures are rare but disorder is uncontrolled. 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 Obstetrical History G1-4: FT c/s G5: SAB G6: current Past Medical History seizure disorder on lamictal, poor dentition Medications Lamictal Past Surgical History section, WTE Allergies paxil Review of Systems General: alert and oriented HEENT: _denies change of vision Heart/lungs: _denies CP, SOB GI: _denies nausea, vomiting, dysuria, diarrhea MSK: _denies calf pain, tenderness Physical Exam Vital Signs Temp Pulse BP Pulse Ox 05/11/20 10:52 106 H 98 05/11/20 10:51 99.0 F 05/11/20 10:50 98.9 F 107 H 119/70 98 General: a&o x3, NAD HEENT: normocephalic, atraumatic Cardio: no JVD Resp: no increased work in breathing Abdomen: soft, gravid, nontender Extremities: minimal edema Neurologic: Cranial nerves II through XII grossly intact, patellar reflexes 2/4 bilaterally, no clonus FHT: [place]: rare Labs pending Assessment & Plan 29-year-old G6, P4 at 29 weeks and 2 days presenting status post seizure. This is complicated by: seizure disorder on lamictal -Spotting has resolved. Patient reports good movement. Abdomen is soft, rare contractions. No evidence at this time of abruption. -Ultrasound completed per patient request, report pending -Slight leukocytosis on CBC likely secondary to seizure -Type and screen pending -CMP pending - status is reassuring with rare contractions. Patient not feeling any cramping, contraction, abdominal pain. -Plan to discharge home with strict precautions and follow-up with primary AQUATICS ASSISTANT DEPARTMENT HEAD as well as neurologist next week. STROKE Vital Signs/Narrative: Vital Signs Temp Pulse BP Pulse Ox 05/11/20 10:52 106 H 98 05/11/20 10:51 99.0 F 05/11/20 10:50 98.9 F 107 H 119/70 98
[2020-05-11 13:53] LABS: ALB/GLOB Ratio 0.6 RATIO (0.9-2.4); AST(SGOT) 20 U/L (15-37); Alanine Aminotransfer ALT/SGPT 28 U/L (13-56); Albumin, Serum 2.5 g/dL (3.2-5.0); Alkaline Phosphatase 98 U/L (45-117); Anion Gap 8 (5-15); BUN 6 mg/dL (7-18); BUN/Creat Ratio 10.4 RATIO (10-20); Calcium,Total 8.2 mg/dL (8.5-10.1); Chloride 105 mmol/L (98-107); Creatinine, Serum 0.58 mg/dL (0.55-1.02); EST Glomerular Filtration Rate 132 mL/min (>60); Est Glom Filt Rate - Afr Amer 160 mL/min (>60); Estimated Creatinine Clearance 141.68 ml/min; Globulin 3.9 g/dL (2.2-4.2); Glucose 135 mg/dL (74-106); LDH 146 U/L (84-246); Potassium 3.3 mmol/L (3.5-5.1); Protein, Total 6.4 g/dL (6.4-8.2); Sodium Level 135 mmol/L (136-145)
[2020-05-11] MEDS: Potassium Chloride Oral Tablet 20 MEQ PO (15:06)
== END 2020-05-11 16:00 | disposition home or self-care (01) ==
LOC: WPOUT 10:44 → WP 10:45
PROVIDERS: PCP Student in an Organized Health Care Education/Training Program; Referring Provider Student in an Organized Health Care Education/Training Program; Visit Provider Student in an Organized Health Care Education/Training Program
DX: O99.353 Diseases of the nervous system complicating pregnancy, third trimester (principal); G40.909 Epilepsy, unspecified, not intractable, without status epilepticus; Z79.899 Other long term (current) drug therapy; Z3A.29 29 weeks gestation of pregnancy
CPT/HCPCS: 36415; 59025; 59050; 76815; 80053; 81001; 83615; 85025; 99218; G0378

== ENCOUNTER 2023-07-22 12:22 | Emergency (ER) | payer MEDICAID, SELFPAY ==
[2023-07-22 12:23] VITALS: BP 105/70; PULSE 90; RESP 18; TEMP 36.6; O2SAT 98; BMI 26.8
--- NOTE | 2023-07-22 13:40 | RAD_ITS ---
STUDY: X-RAY - LEFT FEMUR REASON FOR STUDY: Female, 32 years old. Injury/Pain TECHNIQUE: 4 view(s) of the femur. COMPARISON: None. FINDINGS: Normal visualized femur. Normal visualized soft tissue structure. There is no demonstrated fracture or destructive process. Unremarkable left hip and knee joints. Normal left superior and inferior pubic rami. RAD/Femur Min 2 Views IMPRESSION: Normal x-ray examination of the femur. Electronically Signed: Slick Vyas MD at 14:19 EDT ,
--- NOTE | 2023-07-22 13:40 | RAD_ITS ---
STUDY: X-RAY - LEFT KNEE REASON FOR EXAM: Female, 32 years old. pain to patella s/p seizure- unknown how injured, LROM TECHNIQUE: 4 view(s) of the knee. COMPARISON: Left femur x-ray dated July 22, 2023 FINDINGS: Normal visualized distal femur. Normal visualized proximal tibia and fibula. Normal proximal tibiofibular articulation. There is no demonstrated fracture. Normal medial femorotibial compartment. Normal lateral femorotibial compartment. Normal patellofemoral articulation. There is no demonstrated joint effusion. The soft tissue structures are unremarkable. RAD/Knee 4 or More Views IMPRESSION: Normal x-ray examination of the knee. Electronically Signed: Slick Vyas MD at 14:20 EDT ,
[2023-07-22] MEDS: Ketorolac 30 MG/ML Syringe IM (13:59)
--- NOTE | 2023-07-22 14:24 | EDS_ITS ---
HPI History of Present Illness Chief Complaint: Lower Extremity Injury Informant: patient Narrative Narrative: Patient is a 32-year-old female with history of seizure disorder (generalized tonic-clonic on lamotrigine) presenting for left knee pain. Patient states he had a breakthrough seizure yesterday which is not particularly uncommon for her. Seizure lasted for about 30 minutes. After the seizure she started complaint of left knee pain. She notes she did fall to the ground but is unsure of any other injury. Denies any associate numbness or tingling. States the pain is worse over the medial aspect of her knee. Did not take anything for pain prior to arrival. No other complaints or concerns verbalized at this time. [facility] Medical History (Updated 07/22/23 @ 12:31 by Michelle Swenson) Epilepsy Hepatitis-C Fatty liver Home Medications ?Medication ?Instructions ?Recorded ?Last Taken ?Type lamotrigine 100 mg disintegrating 150 mg PO BID 09/05/15 05/11/20 07:00 History tablet (Lamictal ODT) Allergy/AdvReac Type Severity Reaction Status Date / Time paroxetine (From Paxil) AdvReac Vomiting Verified 07/22/23 12:27 Family History (Updated 07/22/23 @ 12:31 by Michelle Swenson) Mother Cancer Father Cancer Grandmother Cancer Grandfather Cancer Surgical History (Updated 07/22/23 @ 12:31 by Michelle Swenson) H/O section Social History (Updated 07/22/23 @ 12:31 by Michelle Swenson) household members: children and none housing: apartment Smoking Status: Former smoker EXAM Physical Exam Const Vital Signs: 07/22/23 12:23 Temperature 97.9 F Temperature Source Temporal Pulse Rate 90 Respiratory Rate 18 Blood Pressure 105/70 Blood Pressure Mean 81 Pulse Ox 98 Oxygen Delivery Method Room Air MDM MDM Radiography Diagnostic Testing: Clinical Impression(s) from Imaging Studies Femur X-Ray 07/22/23 13:40 IMPRESSION: Normal x-ray examination of the femur. Electronically Signed: Slick Vyas MD at 14:19 EDT , Knee X-Ray 07/22/23 13:40 IMPRESSION: Normal x-ray examination of the knee. Electronically Signed: Slick Vyas MD at 14:20 EDT , Discharge Plan Triage Chief Complaint: Lower Extremity Injury ED Provider: Doris White Dx/Rx/DC Orders Prescriptions: No Action lamotrigine [Lamictal ODT] 100 MG tablet,disintegrating 150 mg PO BID Primary Care Provider: Surya Bello Referrals: Surya Bello DO [Primary Care Provider] - Print Language: Tamazight
--- NOTE | 2023-07-22 14:24 | ED.VIS.LOWEX ---
HPI History of Present Illness Chief Complaint: Lower Extremity Injury Informant: patient Narrative Narrative: Patient is a 32-year-old female with history of seizure disorder (generalized tonic-clonic on lamotrigine) presenting for left knee pain. Patient states he had a breakthrough seizure yesterday which is not particularly uncommon for her. Seizure lasted for about 30 minutes. After the seizure she started complaint of left knee pain. She notes she did fall to the ground but is unsure of any other injury. Denies any associate numbness or tingling. States the pain is worse over the medial aspect of her knee. Did not take anything for pain prior to arrival. No other complaints or concerns verbalized at this time. [facility] Medical History (Updated 07/22/23 @ 15:[address] Doris White DO) Epilepsy Hepatitis-C Fatty liver Home Medications ?Medication ?Instructions ?Recorded ?Last Taken ?Type lamotrigine 100 mg disintegrating 150 mg PO BID 09/05/15 05/11/20 07:00 History tablet (Lamictal ODT) ibuprofen 600 mg tablet 600 mg PO Q6H PRN pain #20 tabs 07/22/23 Unknown Rx Allergy/AdvReac Type Severity Reaction Status Date / Time paroxetine (From Paxil) AdvReac Vomiting Verified 07/22/23 12:27 Family History (Updated 07/22/23 @ 12:31 by Michelle Swenson) Mother Cancer Father Cancer Grandmother Cancer Grandfather Cancer Surgical History (Updated 07/22/23 @ 12:31 by Michelle Swenson) H/O section Social History (Updated 07/22/23 @ 12:31 by Michelle Swenson) household members: children and none housing: apartment Smoking Status: Former smoker ROS ROS ED Constitutional Constitutional ED: Denies chills or fever(s) Eyes Eyes: Denies change in vision Respiratory/Chest Respiratory/Chest: Denies dyspnea Gastrointestinal Gastrointestinal: Denies nausea or vomiting Musculoskeletal Musculoskeletal: Reports other Details: left knee pain Integumentary Denies rash Neurologic Neurologic: Denies headache(s), paresthesias or weakness Psychiatric Psychiatric: Denies anxiety Hematologic/Lymphatic Hematologic/Lymphatic: Denies easy bleeding or easy bruising EXAM Physical Exam Const Vital Signs: 07/22/23 12:23 Temperature 97.9 F Temperature Source Temporal Pulse Rate 90 Respiratory Rate 18 Blood Pressure 105/70 Blood Pressure Mean 81 Pulse Ox 98 Oxygen Delivery Method Room Air Positive well nourished and well developed General Appearance ED: well developed and NAD HEENT Reports moist mucous membranes HEENT Narrative: Normal tympanic membranes bilaterally. No tongue laceration appreciated normocephalic and atraumatic Neck full ROM and supple Chest Wall inspection of chest normal Resp normal respiratory effort and clear to auscultation bilaterally Cardio regular rate, regular rhythm and no murmurs Cardio Narrative: 2+ DP pulses Extremity Extremity Narrative: No deformity of the extremities. No pain with range of motion of the hip. Tenderness to palpation along the distal femur and medial aspect of the left knee. Decreased range of motion secondary to pain but no short arc range of motion pain. No obvious joint effusion present. Patella is in appropriate position. Normal extensor mechanism of the knee. Compartments are soft of the leg. No tenderness to palpation of the fibular head or tibial plateau on palpation. Difficult to perform stress testing of the knee secondary to patient's pain. Neuro oriented x3, moves all extremities and no sensory deficits noted Sensorium / Orientation: alert Psych mental status grossly normal Skin no wounds MDM MDM MDM Narrative Medical decision making narrative: Patient is evaluated for left knee pain after breakthrough seizure that occurred yesterday. Patient appears nontoxic in no acute distress. Vital signs are normal. Is neurovascularly intact of the left lower extremity. X-ray of the femur knee obtained which did not show any acute fracture or bony abnormality. No dislocation appreciated. This reviewed by myself as well as radiology. History is not particularly concerning for knee dislocation and or patellar dislocation. Do not think she requires further imaging at this time. Is given dose of Toradol and is able to ambulate with some assistance in the ER. Will be given an Ramakrishna wrap and crutches. Is given referral for orthopedics. This time I suspect either knee sprain versus meniscal injury. Patient is agreeable this plan of care. Discharged home in stable condition. Radiography Diagnostic Testing: Clinical Impression(s) from Imaging Studies Femur X-Ray 07/22/23 13:40 IMPRESSION: Normal x-ray examination of the femur. Electronically Signed: Slick Vyas MD at 14:19 EDT , Knee X-Ray 07/22/23 13:40 IMPRESSION: Normal x-ray examination of the knee. Electronically Signed: Slick Vyas MD at 14:20 EDT , Discharge Plan Triage Chief Complaint: Lower Extremity Injury ED Provider: Doris White Dx/Rx/DC Orders Clinical Impression: Left knee sprain Instructions: ED Ankle Sprain (Adult) Prescriptions: New ibuprofen 600 mg tablet 600 mg PO Q6H PRN (Reason: pain) Qty: 20 0RF No Action lamotrigine [Lamictal ODT] 100 MG tablet,disintegrating 150 mg PO BID Primary Care Provider: Surya Bello Referrals: Surya Bello DO [Primary Care Provider] - Jacobo Stevenson MD [Med Staff - Active Staff] - As Needed Print Language: Slovenian Disposition Disposition: Home, Self Care
[2023-07-22 15:43] VITALS: BP 94/72; PULSE 70; RESP 14; TEMP 36.6; O2SAT 100
== END 2023-07-22 15:44 | disposition home or self-care (01) ==
PROVIDERS: Emergency Provider Emergency Medicine; PCP Student in an Organized Health Care Education/Training Program; Visit Provider Emergency Medicine
DX: S83.92XA Sprain of unspecified site of left knee, initial encounter (principal); G40.909 Epilepsy, unspecified, not intractable, without status epilepticus; W19.XXXA Unspecified fall, initial encounter; Z87.891 Personal history of nicotine dependence
CPT/HCPCS: 73552; 73564; 96372; 99282